=== PATIENT | female | born 1990 | race Caucasian/White ===

== ENCOUNTER → 2017-02-14 | Outpatient (CLI) | payer OTHER ==
--- NOTE | 2017-02-14 14:47 | CT ---
EXAMINATION TYPE: CT soft tissue neck wo/w con DATE OF EXAM: 02/14/2017 HISTORY: Abnormality seen on Xray per patient. No prior radiographs available at this institution for comparison. COMPARISON: NONE CT DLP: 1910.6 mGycm. Automated Exposure Control for Dose Reduction was Utilized. TECHNIQUE: CT scan of the neck is performed with IV Contrast, patient injected with 100 mL of Omnipa que 300, axial images are obtained, coronal and sagittal reformatted images are reviewed. FINDINGS: Airway: No gross abnormality seen. Parotid/submandibular glands: A single punctate calculus is seen within the right parotid gland with surrounding elongated high density which may relate to the ductal system. No current evidence of surr ounding soft tissue swelling or ductal dilatation to suggest sialoadenitis. Nonenlarged lymph nodes a re seen below both parotid glands as well as above both carotid glands. Otherwise parotid gland and s ubmandibular glands are symmetric. Warton and Stensen's ducts are nondilated. Carotid/Vascular Structures: No evidence of carotid stenosis, aneurysm, or dissection. Osseous Structures: There is rightward nasal septal deviation without fracture. No evidence of acute fracture or dislocation is identified within the osseous structures. Paranasal sinuses that are visua lized are well aerated. Other: Triangular-shaped density seen within the superior midline sternum, most compatible with resid ual thymic tissue. No pneumothorax visualized lung apices. Multiple nonenlarged anterior and posterio r cervical chain lymph nodes are seen bilaterally. Straightening of the usual cervical lordosis is li maik positional in nature. IMPRESSION: Single punctate 2 mm sialolith within the right parotid gland with no ductal dilatation. Otherwise unremarkable examination.
== END | disposition home or self-care (01) ==
LOC: RADCTMAIN 13:31
PROVIDERS: ATTEND Otolaryngology Plastic Surgery within the Head & Neck
DX: M54.2 Cervicalgia (principal)
CPT/HCPCS: 70492; Q9967